=== PATIENT | male | born 1990 | race Two or more races ===

== ENCOUNTER 2021-11-20 02:09 | Inpatient (IN) | payer MEDICARE, MEDICAID ==
[~2021-11-20] VITALS: Ht 175.3 cm; Wt 102.1 kg
[2021-11-21] MEDS ORDERED: LORazepam 2 MG TABLET PO PRN (02:15)
[2021-11-21] MEDS ORDERED: ZOLPIDEM TARTRATE 10 MG TABLET PO PRN (02:15)
[2021-11-21] MEDS ORDERED: HALOPERIDOL 5 MG TABLET PO PRN (02:15)
[2021-11-21 02:53] VITALS: BP 100/69
[2021-11-21] MEDS ORDERED: ACETAMINOPHEN 325 MG TABLET PO PRN (05:30)
[2021-11-21] MEDS ORDERED: ONDANSETRON HCL 4 MG TABLET PO PRN (05:30)
[2021-11-21] MEDS ORDERED: MAG HYDROX/AL HYDROX/SIMETH ES 30 ML SUSPENSION UDCUP PO PRN (05:30)
[2021-11-21] MEDS ORDERED: DOCUSATE SODIUM 100 MG CAPSULE PO PRN (05:30)
[2021-11-21] MEDS ORDERED: PETROLATUM,WHITE 28 GM JELLY TP PRN (05:30)
[2021-11-21] MEDS ORDERED: CloNIDine HCL 0.1 MG TABLET PO PRN (05:30)
[2021-11-21] MEDS ORDERED: MAGNESIUM HYDROXIDE SUSPENSION 30 ML UDCUP PO PRN (05:30)
[2021-11-21] MEDS ORDERED: BENZOCAINE/MENTHOL LOZENGE PO PRN (05:30)
[2021-11-21] MEDS ORDERED: IBUPROFEN 600 MG TABLET PO PRN (05:30)
[2021-11-21] MEDS ORDERED: LOPERAMIDE HCL 2 MG CAPSULE PO PRN (05:30)
[2021-11-21] MEDS ORDERED: ALBUTEROL SULFATE HFA 90 MCG/PUFF 8 GM INHALER IH PRN (05:30)
[2021-11-21] MEDS ORDERED: BACITRACIN 28 GM OINTMENT TP PRN (05:30)
[2021-11-21] MEDS ORDERED: OMEPRAZOLE 20 MG CAPSULE PO PRN (05:30)
[2021-11-21 07:43] LABS: BASOPHILS % (AUTO) 0.9 % (0.0-2.0); EOSINOPHILS % (AUTO) 3.7 % (1.0-6.0); HEMATOCRIT 41.8 % (41-53); LYMPHOCYTES # (AUTO) 1.9 K/uL (1.0-4.8); LYMPHOCYTES % (AUTO) 34.5 % (22.0-44.0); MEAN CORPUSCULAR HEMOGLOBIN 28.5 pg (26.0-34.0); MEAN CORPUSCULAR HGB CONC 33.6 G/dL (31.0-37.0); MEAN CORPUSCULAR VOLUME 85 fL (80-100); MONOCYTES # (AUTO) 0.4 K/uL (0.1-1.0); MONOCYTES % (AUTO) 6.7 % (2.0-9.0); NEUTROPHILS % (AUTO) 54.2 % (40.0-70.0); PLATELET COUNT (AUTO) 233 K/uL (150-450); RED BLOOD CELL COUNT(AUTO) 4.92 MIL/uL (4.50-5.90); RED CELL DISTRIBUTION WIDTH 13.8 % (11.5-14.5)
[2021-11-21 07:53] LABS: HEMOGLOBIN A1C 5.4 % (3.8-5.6)
[2021-11-21 08:16] LABS: ALANINE AMINOTRANSFERASE 16 U/L (12-78); ALBUMIN 3.7 g/dL (3.4-5.0); ALKALINE PHOSPHATASE 64 U/L (46-116); ANION GAP 9 mmol/L (8-16); ASPARTATE AMINOTRANSFERASE 11 U/L (15-37); BILIRUBIN,TOTAL 0.2 mg/dL (0.1-1.0); CALCIUM, TOTAL 9.3 mg/dL (8.8-10.5); CARBON DIOXIDE 25 mmol/L (22-29); CHLORIDE 106 mmol/L (98-107); CHOL/HDL RATIO 4.2 (4.2-7.3); CHOLESTEROL 121 mg/dL (131-200); CREATININE 0.79 mg/dL (0.60-1.30); GLOMERULAR FILTR. RATE CALC > 60 mL/min (>60); GLUCOSE,RANDOM 99 mg/dL (70-110); HDL CHOLESTEROL 29 mg/dL (40-60); LDL CHOL (CALC.) 51 mg/dL (0-130); POTASSIUM 3.7 mmol/L (3.5-5.1); SODIUM SERUM 140 mmol/L (136-145); TOTAL PROTEIN, SERUM 7.2 g/dL (6.4-8.2); TRIGLYCERIDES 207 mg/dL (15-150); UREA NITROGEN, BLOOD 12 mg/dL (7-18)
[2021-11-21 08:42] LABS: FREE T4 (FREE THYROXINE) 0.99 ng/dL (0.76-1.46); THYROID STIMULATING HORMONE 1.14 uIU/mL (0.36-3.74)
[2021-11-21 09:11] VITALS: BP 108/68
[2021-11-21 16:23] VITALS: BP 125/66
[2021-11-21] MEDS: RisperiDONE 3 MG TABLET PO SCH ×2 (17:18→17:56)
[2021-11-22 00:10] VITALS: BP 109/66
[2021-11-22 08:13] VITALS: BP 117/60
[2021-11-22] MEDS: RisperiDONE 3 MG TABLET PO SCH ×2 (08:40→16:30)
[2021-11-22 16:23] VITALS: BP 123/89
[2021-11-23 00:40] VITALS: BP 128/86
[2021-11-23 08:26] VITALS: BP 116/72
[2021-11-23] MEDS: RisperiDONE 3 MG TABLET PO SCH ×2 (08:26→16:08)
[2021-11-23] MEDS ORDERED: RISP3TAB35 PO (14:00)
[2021-11-23 16:25] VITALS: BP 145/83
[2021-11-24 03:09] VITALS: BP 131/92
[2021-11-24 08:05] VITALS: BP 135/71
[2021-11-24] MEDS: RisperiDONE 3 MG TABLET PO SCH ×2 (08:37→16:38)
[2021-11-24 16:17] VITALS: BP 126/73
[2021-11-25 04:11] VITALS: BP 138/89
[2021-11-25] MEDS: RisperiDONE 3 MG TABLET PO SCH ×2 (08:36→16:41)
[2021-11-25 09:32] VITALS: BP 138/77
[2021-11-25 16:07] VITALS: BP 112/67
[2021-11-26 05:25] VITALS: BP 125/92
[2021-11-26 08:07] VITALS: BP 116/77
[2021-11-26 08:11] LABS: GLUCOMETER DEV NAME(LOC) POC.BV
[2021-11-26] MEDS: RisperiDONE 3 MG TABLET PO SCH ×2 (08:35→16:29)
[2021-11-26 16:08] VITALS: BP 119/69
[2021-11-27 08:15] VITALS: BP 128/69
[2021-11-27] MEDS: RisperiDONE 3 MG TABLET PO SCH ×2 (08:15→17:03)
[2021-11-27 16:05] VITALS: BP 138/99
[2021-11-28 04:11] VITALS: BP 131/85
[2021-11-28] MEDS: RisperiDONE 3 MG TABLET PO SCH ×2 (08:06→16:07)
[2021-11-28 08:15] VITALS: BP 135/98
[2021-11-28 16:08] VITALS: BP 120/66
[2021-11-29 08:03] VITALS: BP 134/72
[2021-11-29] MEDS: RisperiDONE 3 MG TABLET PO SCH ×2 (08:16→16:01)
[2021-11-29 16:06] VITALS: BP 122/81
[2021-11-30 03:47] VITALS: BP 126/78
[2021-11-30 08:06] VITALS: BP 126/77
[2021-11-30] MEDS: RisperiDONE 3 MG TABLET PO SCH ×2 (08:17→16:53)
[2021-11-30 16:05] VITALS: BP 141/84
[2021-12-01 05:59] VITALS: BP 126/79
[2021-12-01] MEDS: RisperiDONE 3 MG TABLET PO SCH ×2 (08:10→16:04)
[2021-12-01 08:33] VITALS: BP 133/86
[2021-12-01 16:05] VITALS: BP 137/81
[2021-12-02 06:06] VITALS: BP 140/86
[2021-12-02 08:04] VITALS: BP 141/80
[2021-12-02] MEDS: RisperiDONE 3 MG TABLET PO SCH ×2 (08:30→16:16)
[2021-12-02 16:05] VITALS: BP 142/84
[2021-12-03 01:57] VITALS: BP 126/84
[2021-12-03 08:09] VITALS: BP 147/91
[2021-12-03] MEDS: RisperiDONE 3 MG TABLET PO SCH ×2 (08:09→16:53)
[2021-12-03 16:15] VITALS: BP 144/76
[2021-12-04 00:30] VITALS: BP 115/69
[2021-12-04 08:04] VITALS: BP 127/82
[2021-12-04] MEDS: RisperiDONE 3 MG TABLET PO SCH (08:31)
== END 2021-12-04 13:00 | disposition home or self-care (01) | DRG 885 ==
LOC: B2X 11-21 01:43 → UNDOADMIN 11-21 01:43 → B2X 11-24 11:00
PROVIDERS: ADMIT Psychiatry & Neurology Psychiatry; ATTEND Psychiatry & Neurology Psychiatry
DX: F20.9 Schizophrenia, unspecified (principal); R45.851 Suicidal ideations; F15.10 Other stimulant abuse, uncomplicated; G47.00 Insomnia, unspecified; F41.9 Anxiety disorder, unspecified; Z20.822 Contact with and (suspected) exposure to COVID-19; F17.210 Nicotine dependence, cigarettes, uncomplicated; K59.00 Constipation, unspecified; Z72.89 Other problems related to lifestyle; Z71.51 Drug abuse counseling and surveillance of drug abuser; Z71.6 Tobacco abuse counseling
CPT/HCPCS: 80053; 80061; 83036; 84439; 84443; 85025